=== PATIENT | male | born 1955 | race Caucasian/White ===

== ENCOUNTER 2024-01-12 09:42 | Emergency (ER) | payer BC, MEDICAID ==
[~2024-01-12] VITALS: Ht 157.5 cm; Wt 50.2 kg
[2024-01-12 10:01] VITALS: BP 133/80; PULSE 84; TEMP 97.8; O2SAT 96
[2024-01-12 12:42] VITALS: RESP 15
[2024-01-12 13:35] LABS: BILIRUBIN,URINE MODERATE (Neg); CLARITY,URINE CLOUDY (Clear); GLUCOSE, URINE NEGATIVE (Neg); KETONES,URINE 15 mg/dl (Neg); LEUKOCYTE ESTERASE ,URINE LARGE (Neg); NITRITES, URINE POSITIVE (Neg); OCCULT BLOOD,URINE LARGE (Neg); PH,URINE 6.5 (4.8-8.0); PROTEIN,URINE >=300 mg/dl (Neg)
[2024-01-12 13:40] LABS: UA COLLECTION TYPE CLN CATCH MIDSTREAM
[2024-01-12 13:43] LABS: COLOR,URINE BROWN (Yellow); RBC,URINE TNTC /HPF (0-2); WBC,URINE TNTC /HPF (0-4)
[2024-01-12 13:44] LABS: BACTERIA,URINE 1+ /HPF (Neg); SQUAMOUS EPITHELIAL CELL,UR FEW /LPF (FEW)
[2024-01-12] MEDS ORDERED: PHEN-716 PO (14:05)
[2024-01-12] MEDS ORDERED: CEPH-585 PO (14:05)
[2024-01-12] MEDS: phenazopyridine 100mg tablet PO ONE (14:27)
[2024-01-12] MEDS: CefTRIAXone 1000mg IM Kit (w/lidocaine diluent) IM ONE (14:28)
== END 2024-01-12 14:40 | disposition home or self-care (01) ==
LOC: ER 09:43
DX: N39.0 Urinary tract infection, site not specified (principal); R31.9 Hematuria, unspecified
CPT/HCPCS: 81001; 87077; 87088; 87186; 96372; 99283; J0696